=== PATIENT | female | born 1955 | race Caucasian/White ===

== ENCOUNTER → 2016-10-26 | Outpatient (CLI) | payer BC ==
[~2016-10-26] MED LIST: ARIMIDEX1 MG PO; HERCEPTIN; PERCOCET5/325 PO; VITAMIN D2000 UNI1 PO
--- NOTE | ~2016-10-26 | CR63 ---
[facility] A Service of [facility] & [facility] / [facility] RADIOLOGY TEXT RESULTS PATIENT: JAIRO WELLINGTON LOCATION: [facility] : 55 UNIT #: [id number] AGE: [address]: Erasmo Feliz MD SEX: F ORDER DR: [id number] [facility] [address] [place], [place] [address] [id number] O MR#: [id number] Acc #: [id number] NAME: JAIRO WELLINGTON : 1955 SEX: F STUDY DATE/TIME: 10/26/2016 10:42 UNIT: [facility] ROOM: STUDY DESCRIPTION: CR Chest 2 View Attending Physician: Erasmo Feliz M.D. Ordering Physician: Erasmo Feliz M.D. Primary Care Physician: Nathan Aden M.D. MEDICAL IMAGING REPORT This report is preliminary unless electronic signature is present EXAM PA and lateral chest 10/26/2016 COMPARISON 03/27/2009 HISTORY Right upper chest pain, lump, pulling sensation for 2 months, history of breast cancer. AP and lateral views are obtained. FINDINGS The heart size is stable. Vascular pattern normal. The lungs are clear. There is some chronic scarring in the right apex. Left-sided chest port has been removed. CONCLUSION Chronic scarring at the apex. Interim removal of the left-sided chest port. Dictated by... Paco Vazquez M.D. THIS IS AN ELECTRONICALLY VERIFIED REPORT Paco Vazquez M.D. at 10/26/2016 5:06 PM DESTINY/robbie TD: 10/26/2016 15:20 JOB #: [id number] MEDICAL IMAGING REPORT COPY
--- NOTE | ~2016-10-26 | CR213 ---
[facility] A Service of [facility] & [facility] RADIOLOGY TEXT RESULTS PATIENT: JAIRO WELLINGTON LOCATION: [facility] : 55 UNIT #: [id number] AGE: [address]: Erasmo Feliz MD SEX: F ORDER DR: [id number] [facility] [address] [place], [place] [address] [id number] O MR#: [id number] Acc #: [id number] NAME: JAIRO WELLINGTON : 1955 SEX: F STUDY DATE/TIME: 10/26/2016 11:06 UNIT: [facility] ROOM: STUDY DESCRIPTION: CR Ribs Unilateral 2 View Rt Attending Physician: Erasmo Feliz M.D. Ordering Physician: Erasmo Feliz M.D. Primary Care Physician: Nathan Aden M.D. MEDICAL IMAGING REPORT This report is preliminary unless electronic signature is present EXAM PA chest radiograph plus 3 views of the right ribs HISTORY Right upper chest pain and pulling sensation for 2 months. FINDINGS On the upright chest radiograph, heart size is within normal limits. Lungs appear clear with no focal infiltrates identified, and there is no pneumothorax or pleural effusion. No rib fractures or aggressive osseous abnormalities are seen. No focal soft tissue abnormalities are identified. IMPRESSION No acute disease. Dictated by... Elaine Brewer M.D. THIS IS AN ELECTRONICALLY VERIFIED REPORT Elaine Brewer M.D. at 10/27/2016 7:41 AM AFF/pcl TD: 10/26/2016 22:12 JOB #: [id number] MEDICAL IMAGING REPORT COPY
== END | disposition home or self-care (01) ==
LOC: CRAD 10:32
DX: Z08 Encounter for follow-up examination after completed treatment for malignant neoplasm (principal); Z85.3 Personal history of malignant neoplasm of breast; Z98.890 Other specified postprocedural states
CPT/HCPCS: 71020; 71100